=== PATIENT | female | born 1980 | race Caucasian/White ===

== ENCOUNTER 2019-07-31 11:23 | Emergency (ER) | payer MEDICAID, OTHER ==
[~2019-07-31 11:23] MED LIST: CLOZ150T3 PO; DOCU-329 PO; DULO-31 PO
== END 2019-07-31 11:39 | disposition left against medical advice (07) ==
LOC: ER 11:24
DX: Z00.8 Encounter for other general examination (principal); Z53.21 Procedure and treatment not carried out due to patient leaving prior to being seen by health care provider